=== PATIENT | female | born 1955 | race Caucasian/White ===

== ENCOUNTER → 2022-04-05 09:15 | Outpatient (CLI) | payer MEDICARE, OTHER, SELFPAY ==
[2022-04-05 12:07] LABS: COVID19 -Nasal RAPID Negative (Negative)
== END ==
PROVIDERS: PCP Family Medicine; Visit Provider Surgery
DX: Z20.822 Contact with and (suspected) exposure to COVID-19 (principal); Z01.812 Encounter for preprocedural laboratory examination
CPT/HCPCS: 87635; C9803

== ENCOUNTER 2022-04-06 07:03 | Day surgery (SDC) | payer MEDICARE, OTHER, SELFPAY ==
[2022-04-06 07:45] VITALS: BP 128/81; PULSE 74; RESP 14; TEMP 36.6; O2SAT 98; BMI 25.4
[2022-04-06] MEDS: LACTATED RINGERS 1,000 ML 42 ML IV (07:58)
--- NOTE | 2022-04-06 08:42 | P.HP_ITS ---
History of Present Illness History of Present Illness Date Patient Seen: 04/06/22 Time Patient Seen: 08:42 Chief complaint: Screening Colonscopy Narrative: Last colonoscopy 10yrs ago. No family history or symptoms Patient History Medical History (Updated 04/06/22 @ 08:44 by Sharla Jacques RN) HTN (hypertension) Family & Social History Social History: household members spouse Tobacco & Substance use: Smoking Status Never smoker alcohol intake never Substance Use Type does not use Meds Home Medications and Allergies Home Medications Medication Instructions Recorded Confirmed Type levothyroxine 100 mcg tablet 100 mcg PO DAILY 04/06/22 04/06/22 History lisinopril 10 mg tablet 10 mg PO DAILY 04/06/22 04/06/22 History trazodone 50 mg tablet 50 mg PO DAILY 04/06/22 04/06/22 History verapamil 180 mg 24 hr 180 mg PO DAILY 04/06/22 04/06/22 History capsule,extended release Allergies Allergy/AdvReac Type Severity Reaction Status Date / Time Penicillins Allergy Intermediate Verified 04/06/22 08:43 Sulfa (Sulfonamide Allergy Intermediate Verified 04/06/22 08:43 Antibiotics) Review of Systems Review of Systems ROS: Yes All systems reviewed with the patient and are negative except as otherwise documented Exam Vital Signs (past 8 hours): - 04/06/22 07:45 Temperature 97.8 F Pulse Rate 74 Respiratory Rate 14 Blood Pressure 128/81 Pulse Oximetry 98 Oxygen Delivery Method Room Air Oxygen Delivery Method Room Air Const General: cooperative and healthy appearing [facility] Head: normal to inspection, normocephalic and atraumatic Eyes General: appearance normal, both eyes and all related structures Neck Neck: normal visual inspection Chest Chest: normal inspection of the chest Resp Effort & Inspection: normal respiratory effort and able to speak in complete sentences Cardio Rate: regular rate Rhythm: regular rhythm GI Palpation: soft Skin General: no rashes or lesions noted Neuro General: patient alert, patient awake and patient oriented x3 Cognition: normal cognition Extrem General: normal to inspection Psych Judgment: judgment good Assessment & Plan Assessment & Plan narrative: colon cancer screening with colonoscopy using MAC COVID-19 COVID-19 status: Negative Time Spent With Patient Time with patient: less than 30 minutes Critical Care time: I spent a total of [] minutes of critical care time on this patient's care today; this time is exclusive of procedural time.
--- NOTE | 2022-04-06 09:10 | PM.OP.COLON ---
Operative Date/Time/Diagnoses Date of procedure: 04/06/22 Time of procedure: 09:10 Pre-op diagnosis: Colon cancer screening Post-op diagnosis: same Procedure & Clinicians Study performed: Colonoscopy using MAC Same procedure as scheduled: Yes Indications: Colon cancer screening Surgeon: Regina Mosher Procedure Notes Procedure in detail: Preop diagnosis: Colon cancer screening Postop diagnosis: Same Operative procedure: Colonoscopy MAC Surgeon: Anastasiia Mosher MD Findings: Normal colonoscopy. No polyps, no diverticulosis. Procedure: Patient placed in a lateral position. Rectal exam performed showing normal tone no masses. Colonoscope inserted into the rectum and advanced to ileocecal valve with minimal difficulty. Insufflation extraction of the scope with the above findings. Impression: Normal colonoscopy. Plan: Repeat colonoscopy in 10 years unless otherwise indicated by change in clinical condition. Specimen(s): none sent Complications: none Post-procedure Recommendations: Colonoscopy in 10 years Follow up: as needed Disposition: PACU
[2022-04-06 09:14] VITALS: BP 142/82; PULSE 62; RESP 17; TEMP 36.3; O2SAT 98
[2022-04-06 09:20] VITALS: BP 112/74; PULSE 61; RESP 13; TEMP 36.4; O2SAT 98
[2022-04-06 09:25] VITALS: BP 135/81; PULSE 61; RESP 18; TEMP 36.4; O2SAT 98
== END 2022-04-06 09:38 | disposition home or self-care (01) ==
PROVIDERS: PCP Internal Medicine; Referring Provider Surgery; Visit Provider Surgery
PROC: 0DJD8ZZ Inspection of Lower Intestinal Tract, Via Natural or Artificial Opening Endoscopic (ICD-10-PCS; CPT 45378; principal; 2022-04-06 08:30)
DX: Z12.11 Encounter for screening for malignant neoplasm of colon (principal)
CPT/HCPCS: G0121; J2704